=== PATIENT | female | born 2000 | race Caucasian/White ===

== ENCOUNTER → 2023-01-31 12:25 | Outpatient (CLI) | payer BC, SELFPAY ==
[2023-01-31 13:19] LABS: Phencyclidine Screen,Urine Negative ng/ml (<25)
[2023-01-31 13:26] LABS: Amphetamine/Metha Screen,Urine Negative ng/ml (<1000)
[2023-01-31 13:27] LABS: Barbiturates Screen,Urine Negative ng/ml (<200)
[2023-01-31 13:28] LABS: Benzodiazepines Screen,Urine Negative ng/ml (<200); Cannabinoid Screen,Urine Negative ng/ml (<50)
[2023-01-31 13:29] LABS: Cocaine Screen,Urine Negative ng/ml (<300)
[2023-01-31 13:30] LABS: Methadone Screen,Urine Negative ng/ml (<300); Opiate Screen,Urine Negative ng/ml (<300)
== END ==
PROVIDERS: PCP Nurse Practitioner Family; Visit Provider Nurse Practitioner Family
DX: Z02.83 Encounter for blood-alcohol and blood-drug test (principal)
CPT/HCPCS: 80305

== ENCOUNTER → 2023-02-01 11:14 | Outpatient (CLI) | payer BC, SELFPAY ==
[2023-02-01 11:46] LABS: Benzodiazepines Screen,Urine Negative ng/ml (<200)
[2023-02-01 11:47] LABS: Amphetamine/Metha Screen,Urine Negative ng/ml (<1000); Barbiturates Screen,Urine Negative ng/ml (<200)
[2023-02-01 11:48] LABS: Cannabinoid Screen,Urine Negative ng/ml (<50)
[2023-02-01 11:49] LABS: Cocaine Screen,Urine Negative ng/ml (<300); Methadone Screen,Urine Negative ng/ml (<300)
[2023-02-01 11:50] LABS: Opiate Screen,Urine Negative ng/ml (<300); Phencyclidine Screen,Urine Negative ng/ml (<25)
== END ==
PROVIDERS: PCP Nurse Practitioner Family; Visit Provider Nurse Practitioner Family
DX: Z02.83 Encounter for blood-alcohol and blood-drug test (principal)
CPT/HCPCS: 80305